=== PATIENT | female | born 1970 | race Caucasian/White ===

== ENCOUNTER 2022-03-18 00:15 | Emergency (ER) | payer SELFPAY ==
[~2022-03-18 00:15] MED LIST: CHANTIX1 EACH PO; MEDROL4 MG PO; OMNICEF 300 MG300 MG PO; ZITHROMAX500 MG PO
[2022-03-18] MEDS ORDERED: BENADRYL 50MG C50 MG PO (02:38)
[2022-03-18] MEDS ORDERED: ELIMITE 5% CREA60 GM TOP (02:38)
== END 2022-03-18 02:45 | disposition home or self-care (01) ==
LOC: ER1 00:15
DX: T14.8XXA Other injury of unspecified body region, initial encounter (principal); R21 Rash and other nonspecific skin eruption; F17.210 Nicotine dependence, cigarettes, uncomplicated; W57.XXXA Bitten or stung by nonvenomous insect and other nonvenomous arthropods, initial encounter
CPT/HCPCS: 99282